=== PATIENT | female | born 1995 | race Two or more races ===

== ENCOUNTER 2023-12-26 14:30 | Emergency (ER) | payer MEDICAID, SELFPAY ==
[2023-12-26 15:08] VITALS: BP 122/83; PULSE 108; RESP 18; TEMP 37.1; O2SAT 100; BMI 32.6
--- NOTE | 2023-12-26 15:20 | EDNOTE_ITS ---
Lower Extremity Injury RME/HPI General Chief Complaint: Extremity Injury, Lower Stated Complaint: LEFT CALF PAIN, SWOLLEN AND TURNING RED X1 MONTH Time Seen by Provider: 12/26/23 15:15 Source: patient Arrival date/time: 12/26/23 14:30 28-year-old female presents emergency department complaining of left calf pain and swelling for several months. Patient denies any fever, chills, nausea vomiting, shortness of breath, chest pain, or any other associated symptom. Patient denies any recent travel or long periods of sitting. Mode of arrival: ambulatory Limitations: no limitations Related Data Home Medications ?Medication ?Instructions ?Recorded ?Confirmed ibuprofen 800 mg tablet 800 mg PO TID PRN Pain 04/28/17 06/30/21 Previous Rx's ?Medication ?Instructions ?Recorded ondansetron 4 mg disintegrating 4 mg PO Q8H PRN nausea and 06/30/21 tablet vomiting #10 tabs promethazine-DM 6.25 mg-15 mg/5 mL 5 ml PO Q6H #240 mL 06/30/21 oral syrup ibuprofen 600 mg tablet 600 mg PO Q8H PRN pain #20 tabs 12/26/23 Allergies Allergy/AdvReac Type Severity Reaction Status Date / Time No Known Drug Allergies Allergy Verified 06/30/21 10:07 Review of Systems Review of Systems Systems Reviewed: All systems reviewed, normal except as documented Constitutional Constitutional: Reports system reviewed and no additional complaints, except as documented, Denies body ache(s), Denies chills and Denies fever(s) Eyes Eyes: Reports system reviewed and no additional complaints, except as documented and Denies change in vision ENT Ears, Nose, Mouth, and Throat: Reports system reviewed and no additional complaints, except as documented, Denies disequilibrium, Denies dizziness, Denies sore throat and Denies vertigo Cardiovascular Cardiovascular: Reports system reviewed and no additional complaints, except as documented, Denies chest pain and Denies dyspnea Respiratory Respiratory: Reports system reviewed and no additional complaints, except as documented, Denies chest congestion, Denies cough and Denies dyspnea Gastrointestinal Gastrointestinal: Reports system reviewed and no additional complaints, except as documented, Denies abdominal pain, Denies nausea and Denies vomiting Musculoskeletal Musculoskeletal: Reports system reviewed and no additional complaints, except as documented, Denies abnormal gait, Denies arthralgias, Reports joint swelling and Reports muscle cramps Integumentary/Breasts Skin/Breast: Reports system reviewed and no additional complaints, except as documented, Denies erythema, Denies rash and Denies wounds Neurologic Neurologic: Reports system reviewed and no additional complaints, except as documented, Denies abnormal gait, Denies disequilibrium, Denies dizziness and Denies vertigo Past Medical History Past Medical History CARDIAC: Negative Cardiac Disorders or Congestive Heart Failure RESPIRATORY: Negative Chronic Obstructive Pulmonary Disease (COPD) or Asthma GASTROINTESTINAL: Positive Gastrointestinal Disorders and Gall Bladder Disease GENITOURINARY: Negative Renal Disease ENDOCRINE: Negative Diabetes Mellitus Type 1 or Diabetes Mellitus Type 2 HEMATOLOGIC: Negative Sickle Cell Disease PSYCHO/SOCIAL: Positive Recreational Drug Use Social History SMOKING STATUS: Current every day smoker ED Exam General Limitations: Present no limitations General appearance: Present alert and in no apparent distress Head Head exam: Present atraumatic Eye Eye exam: Present normal appearance, PERRL and EOMI ENT ENT exam: Present normal exam, normal oropharynx and mucous membranes moist Neck Neck exam: Present normal inspection, full ROM and trachea midline Chest Chest inspection: Present normal inspection and symmetric chest wall rise Respiratory Respiratory exam: Present normal lung sounds bilaterally Cardiovascular Cardiovascular exam: Present regular rate, normal rhythm and normal heart sounds Abdominal Exam Abdominal exam: Present soft and normal bowel sounds Extremities Exam Extremities exam: Present normal inspection and full ROM Expanded Lower Extremity Exam Lower leg exam: Present tenderness (Left calf) and swelling (+1 edema left calf) Back Exam Back exam: Present normal inspection and full ROM Neurological Exam Neurological exam: Present alert, oriented X3 and CN II-XII intact Psychiatric Psychiatric exam: Present normal affect and normal mood Skin Skin exam: Present warm, dry, intact and normal color Course Quality Measures none Orders Category Date Time Status US venous doppler LE LT Stat Exams 12/26/23 16:03 Completed Vital Signs Vital signs: Vital Signs Temperature 98.7 F 12/26/23 15:08 Pulse Rate 108 H 12/26/23 15:08 Respiratory Rate 18 12/26/23 15:08 Blood Pressure 122/83 12/26/23 15:08 Pulse Oximetry (%) 100 12/26/23 15:08 Oxygen Delivery Method Room Air 12/26/23 15:08 100% room air within normal limits Extremity Injury, Lower MDM Narrative MDM Narrative:: 28-year-old female presents emergency department complaining of left calf pain and swelling for several months. Patient denies any fever, chills, nausea vomiting, shortness of breath, chest pain, or any other associated symptom. Patient denies any recent travel or long periods of sitting. Ultrasound was negative for any acute DVT. On exam patient does have varicose veins which may be contributing to her edema and pain. Patient advised to buy [id number] compression stockings and follow-up with primary care provider upon discharge and request referral to vascular surgeon if symptoms persist. Instructed to return to emergency department for any worsening symptoms or as needed Patient data External records reviewed:: [facility] previous records Clinical information provided by:: patient Social determinants that could affect healthcare access:: none Patient has the following chronic illnesses:: Not applicable How is presenting disease/condition affected by chronic disease/condition?: no chronic disease Evaluation data The following diagnostics were reviewed and interpreted by me:: radiology e xam(s) Lab and/or radiology exams considered but not ordered:: Ordered Interpretation Summary: Interpreted by me Medications / Prescriptions Medications or Prescriptions considered but not ordered:: N/A Medication administrations:: N/A Consultations Consultation(s) initiated? (list below): No Diagnosis Extremity Injury, Lower Differential Diagnosis: other (DVT) Most likely diagnosis given after review of the tests above:: Varicose veins with edema Admission Indicated Admission indicated?: not indicated Admission Request Was there a request for admission?: No Disposition Plan Disposition Plan: Discharge Discharge Attestation Discharge Attestation: The patient and all family members were given an opportunity to ask questions and understood the discharge instructions. Discharge instructions specifically effects, indications for sooner follow up or return to the emergency department, and the expected course of current diagnosis. Patient condition: Stable Discharge Plan Plan Patient Disposition: HOME (Self Care) Disposition Comment: Stable Prescriptions/Referrals Prescriptions/Med Rec: New ibuprofen 600 mg tablet 600 mg PO Q8H PRN (Reason: pain) Qty: 20 0RF No Action ibuprofen 800 mg Tablet 800 mg PO TID PRN (Reason: Pain) ondansetron 4 mg tablet,disintegrating 4 mg PO Q8H PRN (Reason: nausea and vomiting) Qty: 10 0RF promethazine-DM 6.25-15 mg/5 mL syrup 5 ml PO Q6H Qty: 240 0RF Referrals: Avinash Esqueda PA-C [Primary Care Provider] - In 1 week Problem List Clinical Impression: Varicose veins of left leg with edema Patient/Caregiver Discharge Instructions Education Materials: ED Varicose Veins Additional Instructions: Take medication as prescribed. Follow-up with primary care provider and request referral to vascular surgeon if symptoms persist. Return to the emergency department for any worsening symptoms or as needed Print Language: Bolivian Stand Alone Forms: [employer] Award Info., Work/School Release, Patient Portal Info Letter MD Attestation MD Attestation The patient was seen by the midlevel practitioner. I, the co-signing physician, was present during the entire ER visit. While I did not physically examine the patient, I was available for consultation as needed.
--- NOTE | 2023-12-26 15:20 | XR_ITS ---
Examination: Duplex scan of the lower extremity, unilateral left complete Date and time of exam: January 05, 2024 1529 hrs. Indications: Left leg swelling and pain beginning 10 minutes ago, worse the last week Technique: Duplex scan of the extremity veins using B-mode/grayscale imaging and Doppler spectral analysis and color flow Attention is directed to internal echogenicity, compression and augmentation involving these veins, color flow assessment, spectral analysis Findings: Major deep venous structures in the extremity demonstrate normal course and caliber. There is no evidence of deep vein thrombosis. Normal color flow and spectral analysis Impression: Negative for DVT..
== END 2023-12-26 16:35 | disposition home or self-care (01) ==
PROVIDERS: Emergency Provider Emergency Medicine; PCP Physician Assistant Medical
DX: I83.892 Varicose veins of left lower extremity with other complications (principal)
CPT/HCPCS: 93971; 99284

== ENCOUNTER 2024-02-06 20:49 | Emergency (ER) | payer MEDICAID, SELFPAY ==
[2024-02-06 20:49] VITALS: BMI 31.9
[2024-02-06 21:54] VITALS: BP 135/89; PULSE 89; RESP 18; TEMP 37.4; O2SAT 99
--- NOTE | 2024-02-06 22:24 | XR_ITS ---
Examination: CT soft tissue neck, with intravenous contrast. 2-D coronal reconstructions. 2-D sagittal reconstructions. Date and time of exam :February 06, 2024 11:54 PM Indications: Sore throat with neck swelling beginning one week ago CTDI: vol (mGy):11 DLP: (mGycm):241 Technique: 1.25 mm axial sections of the neck of the obtained. Coronal and sagittal reconstructions have been obtained. Intravenous contrast administered 50 cc Isovue-370. Low dose protocols were performed. One or more of the following dose reduction techniques were used; automated exposure control, adjustment of the mA and/or KV according to patient size, use of iterative reconstruction technique. Findings: Right tonsillar abscess 13 x 10 mm, partially encroaching upon the oropharynx axial image 16 through 22 Small reactive carotid triangle lymph nodes The larynx appears normal Thyroid lobes are not enlarged Normal epiglottis Impression: 13 x 10 mm right tonsillar abscess partially encroaching upon the oropharyngeal airway
[2024-02-06 22:41] LABS: Lactate (Lactic Acid) 0.6 mMol/L (0.4-2.0)
[2024-02-06 22:47] LABS: Basophils % (Auto) 0 % (0-2.5); Eosinophils # (Auto) 0.2 Thou/mm3 (0.0-0.5); Eosinophils % (Auto) 3 % (0-10); Hemoglobin 13.2 g/dL (12.0-16.0); Immature Granulocytes % (Auto) 0 % (0-0); Immature Granulocytes Auto 0.03 Thou/mm3 (0.00-0.00); Lymphocytes # (Auto) 2.4 Thou/mm3 (1.0-4.8); Lymphocytes % (Auto) 27 % (10-50); Mean Corpuscular HGB Conc 34.7 g/dl (31.0-37.0); Mean Corpuscular Hemoglobin 31.3 pg (25.0-35.0); Mean Corpuscular Volume 90 fL (80-100); Monocytes # (Auto) 0.5 Thou/mm3 (0.0-0.8); Monocytes % (Auto) 6 % (0-12); Neutrophils # (Auto) 5.8 Thou/mm3 (1.8-7.7); Neutrophils % (Auto) 64 % (37-80); Nucleated Red Blood Cell % 0 /100 WBC (0); Platelet Count 287 Thou/mm3 (140-440); RDW Standard Deviation 38.4 fL (36.4-46.3); Red Blood Count 4.22 Miln/mm3 (4.00-5.20)
--- NOTE | 2024-02-06 23:07 | PD.EDDENTL ---
ED Dental RME/HPI General Chief complaint: Dental/Oral/Throat Stated complaint: SORE THROAT Time Seen by Provider: 02/06/24 21:35 Arrival date/time: 02/06/24 20:49 28F with no significant PMH presents to ED with several days of sore throat and swelling. Patient denies cough. Patient has had strep before and states this feels different. Some difficulty swallowing, especially when sleeping. Limitations: no limitations Related Data Home Medications ?Medication ?Instructions ?Recorded ?Confirmed ibuprofen 800 mg tablet 800 mg PO TID PRN Pain 04/28/17 06/30/21 Previous Rx's ?Medication ?Instructions ?Recorded ondansetron 4 mg disintegrating 4 mg PO Q8H PRN nausea and 06/30/21 tablet vomiting #10 tabs promethazine-DM 6.25 mg-15 mg/5 mL 5 ml PO Q6H #240 mL 06/30/21 oral syrup ibuprofen 600 mg tablet 600 mg PO Q8H PRN pain #20 tabs 12/26/23 amoxicillin 875 mg-potassium 1 tab PO BID 14 days #28 tabs 02/07/24 clavulanate 125 mg tablet Allergies Allergy/AdvReac Type Severity Reaction Status Date / Time No Known Drug Allergies Allergy Verified 02/06/24 20:51 Review of Systems Review of Systems Systems Reviewed: All systems reviewed, normal except as documented Constitutional Constitutional: Reports system reviewed and no additional complaints, except as documented, Denies fever(s) and Denies headache(s) ENT Ears, Nose, Mouth, and Throat: Reports as per HPI, Denies disequilibrium, Denies headache(s), Reports sore throat and Reports throat swelling Cardiovascular Cardiovascular: Reports system reviewed and no additional complaints, except as documented, Denies chest pain and Denies dyspnea Respiratory Respiratory: Reports system reviewed and no additional complaints, except as documented, Denies cough and Denies dyspnea Gastrointestinal Gastrointestinal: Reports system reviewed and no additional complaints, except as documented, Denies abdominal pain, Denies nausea and Denies vomiting Neurologic Neurologic: Reports system reviewed and no additional complaints, except as documented, Denies confusion, Denies disequilibrium and Denies headache(s) Psychiatric Psychiatric: Denies confusion Allergic/Immunologic Allergic/Immunologic: Reports throat swelling Past Medical History Past Medical History CARDIAC: Negative Cardiac Disorders or Congestive Heart Failure RESPIRATORY: Negative Chronic Obstructive Pulmonary Disease (COPD) or Asthma GASTROINTESTINAL: Positive Gastrointestinal Disorders and Gall Bladder Disease GENITOURINARY: Negative Renal Disease ENDOCRINE: Negative Diabetes Mellitus Type 1 or Diabetes Mellitus Type 2 HEMATOLOGIC: Negative Sickle Cell Disease PSYCHO/SOCIAL: Positive Recreational Drug Use Social History SMOKING STATUS: Never smoker ED Exam General Limitations: Present no limitations General appearance: Present alert and in no apparent distress Head Head exam: Present atraumatic Eye Eye exam: Present normal appearance, PERRL and EOMI ENT ENT exam: Present mucous membranes moist Expanded ENT Exam Throat exam: Present tonsillar erythema, tonsillomegaly and R peritonsillar mass; Absent muffled voice Neck Neck exam: Present normal inspection, full ROM and trachea midline Chest Chest inspection: Present normal inspection and symmetric chest wall rise Respiratory Respiratory exam: Present normal lung sounds bilaterally Cardiovascular Cardiovascular exam: Present regular rate, normal rhythm and normal heart sounds Abdominal Exam Abdominal exam: Present soft and normal bowel sounds Extremities Exam Extremities exam: Present normal inspection and full ROM Back Exam Back exam: Present normal inspection and full ROM Neurological Exam Neurological exam: Present alert, oriented X3 and CN II-XII intact Psychiatric Psychiatric exam: Present normal affect and normal mood Skin Skin exam: Present warm, dry, intact and normal color Course Quality Measures none Orders Category Date Time Status CT Screening NOW Care 02/06/24 22:24 Active Insert IV NOW Care 02/06/24 22:[address] soft tissue neck w con Stat Exams 02/06/24 22:24 Taken CBC Stat Lab 02/06/24 22:25 Completed CMP [Comprehensive Metabolic Panel] Stat Lab 02/06/24 22:25 Completed Lactate (Lactic Acid) Stat Lab 02/06/24 22:25 Completed Procalcitonin Stat Lab 02/06/24 22:25 Completed Ampicillin/Sulbac Inj [Unasyn Inj] 3 gm Med 02/06/24 22:24 Discontinued Sodium Chloride 0.9% (P) [NS 0.9% mini bag] 100 ml IV X1 Dexamethasone Inj [Decadron Inj] Med 02/06/24 22:24 Discontinued 10 mg IV X1 ONE Ketorolac Inj [Toradol Inj] Med 02/07/24 00:46 Discontinued 30 mg IVP X1 ONE Vital Signs Vital signs: Vital Signs Temperature 99.3 F 02/06/24 21:54 Pulse Rate 89 02/06/24 21:54 Respiratory Rate 18 02/06/24 21:54 Blood Pressure 135/89 H 02/06/24 21:54 Pulse Oximetry (%) 99 02/06/24 21:54 Oxygen Delivery Method Room Air 02/06/24 21:54 O2 at 99% on RA and WNLs Dental / Oral MDM Narrative MDM Narrative:: 28F with no significant PMH presents to ED with several days of sore throat and swelling. Patient denies cough. Patient has had strep before and states this feels different. Some difficulty swallowing, especially when sleeping. Physical exam reveals R tonsillar swelling, but uvula remains midline. No muffled voice. Patient is afebrile, calm, and alert. Patient prefers CT to see size of abscess vs just ABX. No leukocytosis. CMP unremarkable. Procal/lactate normal. CT 1 cm tonsillar abscess. Meds given. Patient data External records reviewed:: [facility] previous records Clinical information provided by:: patient Social determinants that could affect healthcare access:: none Patient has the following chronic illnesses:: none How is presenting disease/condition affected by chronic disease/condition?: no chronic disease Evaluation data The following diagnostics were reviewed and interpreted by me:: lab results and radiology exam(s) Lab and/or radiology exams considered but not ordered:: ordered Interpretation Summary: above Medications / Prescriptions Medications or Prescriptions considered but not ordered:: ordered Medication administrations:: Medication Administration History Discontinued Medications Dexamethasone Sodium Phosphate (Dexamethasone Sod Phos Inj 10 Mg/Ml Vial) 10 mg IV X1 ONE Stop: 02/06/24 22:25 Last Admin: 02/06/24 23:19 Dose: 10 mg Documented By: SENA Ampicillin Sodium/Sulbactam (Sodium 3 gm/ Sodium Chloride) 100 mls @ 200 mls/hr IV X1 ONE Stop: 02/06/24 22:25 Last Infusion: 02/06/24 23:52 Dose: Infused Documented By: Admin: 02/06/24 23:19 Dose: 200 mls/hr Documented By: SENA Ketorolac Tromethamine (Ketorolac Inj 30 Mg/Ml Vial) 30 mg IVP X1 ONE Stop: 02/07/24 00:47 Last Admin: 02/07/24 00:55 Dose: 30 mg Documented By: SENA Comments: PT CALM AND RELAXED TALKING ON PHONE above Consultations Consultation(s) initiated? (list below): No Diagnosis Dental Differential Diagnosis: gingival abscess, dental caries, toothache, dental abscess, fracture of tooth, aphthous ulcer and other (tonsillar abscess) Most likely diagnosis given after review of the tests above:: tonsillar abscess Admission Indicated Admission indicated?: not indicated Admission Request Was there a request for admission?: No Disposition Plan Disposition Plan: Discharge Discharge Attestation Discharge Attestation: The patient and all family members were given an opportunity to ask questions and understood the discharge instructions. Discharge instructions specifically effects, indications for sooner follow up or return to the emergency department, and the expected course of current diagnosis. Patient condition: Stable Discharge Plan Plan Patient Disposition: HOME (Self Care) Disposition Comment: Stable Prescriptions/Referrals Prescriptions/Med Rec: New amoxicillin-pot clavulanate 875-125 mg tablet 1 tab PO BID 14 Days Qty: 28 0RF No Action ibuprofen 800 mg Tablet 800 mg PO TID PRN (Reason: Pain) ondansetron 4 mg tablet,disintegrating 4 mg PO Q8H PRN (Reason: nausea and vomiting) Qty: 10 0RF promethazine-DM 6.25-15 mg/5 mL syrup 5 ml PO Q6H Qty: 240 0RF ibuprofen 600 mg tablet 600 mg PO Q8H PRN (Reason: pain) Qty: 20 0RF Referrals: Darron Zacarias MD [Primary Care Provider] - In 1 week Problem List Clinical Impression: Abscess of tonsil Patient/Caregiver Discharge Instructions Education Materials: ED Peritonsillar Abscess Additional Instructions: Please follow-up with PCP within 24-48 hours and return immediately if symptoms worsen. Ibuprofen/Tylenol can be used simultaneously for greater fever/pain control. Print Language: Slovak Stand Alone Forms: Patient Portal Info Letter JAYASHREE/JUAN LUIS Supervising Physician HOLGER Supervising Physician: Dr. Medrano
[2024-02-06 23:11] LABS: Alanine Aminotransferase 41 U/L (10-49); Albumin, Serum 4.5 gm/dL (3.5-5.0); Albumin/Globulin Ratio 1.6 (1.2-2.2); Alkaline Phosphatase 79 U/L (46-116); Anion Gap 10 (7-16); Aspartate Amino Transferase 30 U/L (0-34); BUN/Creatinine Ratio 15 Ratio (12-20); Bilirubin,Total 0.4 mg/dL (0.3-1.2); Blood Urea Nitrogen 9 mg/dL (9-23); Calcium 9.6 mg/dL (8.3-10.6); Calcium (Corrected) 9.6 mg/dL (8.5-10.1); Carbon Dioxide 22.5 mMol/L (20.0-31.0); Chloride 107 mMol/L (98-107); Creatinine (Component) 0.6 mg/dL (0.6-1.3); Estimated Creatinine Clearance 156.2 mL/min (>60); Globulin 2.9 gm/dL (2.3-3.5); Glucose 93 mg/dL (74-106); Osmolality,Calculated 276 (275-295); Potassium 3.8 mMol/L (3.4-5.1); Procalcitonin 0.07 ng/ml (0.0-0.49); Sodium 139 mMol/L (136-145); Total Protein 7.4 gm/dL (5.7-8.2); eGFR > 60 See Note
[2024-02-06] MEDS: DEXAMETHASONE SOD PHOS INJ 10 MG/ML VIAL IV (23:19)
[2024-02-06] MEDS: AMPICILLIN/SULBAC INJ 3 GM in SODIUM CHLORIDE 0.9% (P) 100 ML IV (23:19)
[2024-02-07 00:24] VITALS: BP 119/76; PULSE 90; RESP 19; TEMP 36.9; O2SAT 98
--- NOTE | 2024-02-07 00:44 | PRELIM_ITS ---
CT scan of the neck with intravenous contrast (axial sections with sagittal and coronal reformats) [place] 2023 at 2354 hours Clinical History: Right tonsillar swelling. Comparison: None.Findings:I mage quality is limited by beam hardening artifacts from dental amalgam.Questionable right palatine t onsil abscess measuring 1.2 x 1.1 cm.The nasopharynx, hypopharynx, supraglottic and infraglottic funmi nx, vocal cords and upper trachea are unremarkable. The epiglottis and aryepiglottic folds appear unr emarkable. No enhancing lesion or fluid collection is identified. The vessels of the neck are well op acified. No filling defect is seen. The superficial soft tissues of the neck are unremarkable. Close of the physiologic cervical lordosis.Impression:Image quality is limited by beam hardening artifacts from dental amalgam.Questionable right palatine tonsil abscess, consider correlation with MRI.Discuss ion Details: Results verbally communicated to : JAYASHREE Katz at 12:38 AM 02/07/2024 Report Electronica lly Signed By: Teddy Weinstein 02/07/2024 12:43:30 AM [EST]
[2024-02-07] MEDS: KETOROLAC INJ 30 MG/ML VIAL IVP (00:55)
== END 2024-02-07 01:08 | disposition home or self-care (01) ==
PROVIDERS: Physician Assistant; Emergency Provider Emergency Medicine; PCP Family Medicine
DX: J36 Peritonsillar abscess (principal)
CPT/HCPCS: 36415; 70491; 80053; 83605; 84145; 85025; 87651; 96365; 96375; 99285; A4649; J0295; J1100; J1885; Q9967

== ENCOUNTER 2024-11-27 16:35 | Emergency (ER) | payer MEDICAID, SELFPAY ==
[2024-11-27 16:36] VITALS: BMI 30.7
[2024-11-27 17:23] VITALS: BP 126/74; PULSE 87; RESP 16; TEMP 37; O2SAT 100
--- NOTE | 2024-11-27 19:01 | XR_ITS ---
Examination: Complete OB ultrasound, less than 14 weeks, transabdominal Date and time of exam: November 27, 2024, 1936 hours INDICATIONS: Vaginal bleeding beginning this morning Technique: Obstetrical ultrasound images less than 14 weeks performed via transabdominal imaging Findings: A normal shaped single intrauterine gestation is present in the uterus. pole 0.5 cm corresponds to 6 weeks 1 day gestational age Cardiac motion 147 bpm Ultrasonographic survey of visible and placental structures unremarkable. Amniotic fluid volume appears appropriate for this estimated gestational age. Right ovary obscured by bowel gas Left ovary 3.1 cm arterial flow IMPRESSION: Viable intrauterine gestation 6 weeks 1 day.
[2024-11-27 19:21] LABS: Basophils # (Auto) 0.0 Thou/mm3 (0.0-0.2); Basophils % (Auto) 0 % (0-2.5); Eosinophils # (Auto) 0.1 Thou/mm3 (0.0-0.5); Eosinophils % (Auto) 2 % (0-10); Hematocrit 38.3 % (36.0-46.0); Hemoglobin 13.1 g/dL (12.0-16.0); Immature Granulocytes Auto 0.01 Thou/mm3 (0.00-0.00); Lymphocytes # (Auto) 2.6 Thou/mm3 (1.0-4.8); Lymphocytes % (Auto) 37 % (10-50); Mean Corpuscular HGB Conc 34.2 g/dl (31.0-37.0); Mean Corpuscular Hemoglobin 31.0 pg (25.0-35.0); Mean Corpuscular Volume 91 fL (80-100); Monocytes # (Auto) 0.4 Thou/mm3 (0.0-0.8); Monocytes % (Auto) 6 % (0-12); Neutrophils # (Auto) 3.9 Thou/mm3 (1.8-7.7); Neutrophils % (Auto) 55 % (37-80); Nucleated Red Blood Cell # 0.00 Thou/mm3 (0.00-0.00); Nucleated Red Blood Cell % 0 /100 WBC (0); Platelet Count 300 Thou/mm3 (140-440); RDW Standard Deviation 37.6 fL (36.4-46.3); Red Blood Count 4.23 Miln/mm3 (4.00-5.20); White Blood Count 7.1 Thou/mm3 (3.6-11.0)
[2024-11-27 19:44] LABS: Alanine Aminotransferase 50 U/L (10-49); Albumin, Serum 4.7 gm/dL (3.5-5.0); Albumin/Globulin Ratio 1.9 (1.2-2.2); Alkaline Phosphatase 66 U/L (46-116); Anion Gap 10 (7-16); Aspartate Amino Transferase 35 U/L (0-34); BUN/Creatinine Ratio 9 Ratio (12-20); Bilirubin,Total 0.3 mg/dL (0.3-1.2); Blood Urea Nitrogen 7 mg/dL (9-23); Calcium 10.1 mg/dL (8.3-10.6); Calcium (Corrected) 10.1 mg/dL (8.5-10.1); Carbon Dioxide 23.6 mMol/L (20.0-31.0); Chloride 105 mMol/L (98-107); Creatinine (Component) 0.8 mg/dL (0.6-1.3); Estimated Creatinine Clearance 113.7 mL/min (>60); Globulin 2.5 gm/dL (2.3-3.5); Glucose 106 mg/dL (74-106); Osmolality,Calculated 275 (275-295); Potassium 4.3 mMol/L (3.4-5.1); Sodium 139 mMol/L (136-145); Total Protein 7.2 gm/dL (5.7-8.2); eGFR > 60 See Note
[2024-11-27 20:20] LABS: Collection Type, Urine Voided
[2024-11-27 20:28] LABS: Beta HCG,Quantitative 17088 mIU/mL (<5.0)
[2024-11-27 20:29] LABS: Bilirubin,Urine Negative (Negative); Blood,Urine 2+ (Negative); Clarity,Urine Clear (Clear/Hazy); Color,Urine Colorless (Lt Yel-Yel); Glucose, Urine Negative (Negative); Ketones,Urine Negative (Negative); Leukocyte Esterase,Urine Negative (Negative); Nitrite,Urine Negative (Negative); PH,Urine 6.5 (5.0-7.0); Protein,Urine Negative (Neg - Trace); RBC,Urine 3 /hpf (0-3); Specific Gravity,Urine 1.007 (1.001-1.035); Squamous Epithelial Cell,Urine 1 /hpf (0-5); Urobilinogen,Urine Negative mg/dL (0.0-1.0); WBC,Urine < 1 /hpf (0-5)
--- NOTE | 2024-11-27 20:40 | PD.EDVAGBL ---
ED OB Contraction Preg RMI/HPI General Chief complaint: Vaginal Bleeding Stated complaint: VAGINAL BLEEDING; 6 WEEKS OB Time Seen by Provider: 11/27/24 18:38 Arrival date/time: This is a case of 29-year-old female who came into the emergency room due to mild vaginal bleeding no blood clots and pelvic cramping today patient is 6 weeks 1 para 0 patient was seen by clinic yesterday and was treated for urinary tract infection and was discharged with cephalexin persistence of the symptoms this patient decided to start consult here in the emergency room Limitations: no limitations Related Data Home Medications ?Medication ?Instructions ?Recorded ?Confirmed ibuprofen 800 mg tablet 800 mg PO TID PRN Pain 04/28/17 06/30/21 Previous Rx's ?Medication ?Instructions ?Recorded ondansetron 4 mg disintegrating 4 mg PO Q8H PRN nausea and 06/30/21 tablet vomiting #10 tabs promethazine-DM 6.25 mg-15 mg/5 mL 5 ml PO Q6H #240 mL 06/30/21 oral syrup ibuprofen 600 mg tablet 600 mg PO Q8H PRN pain #20 tabs 12/26/23 Allergies Allergy/AdvReac Type Severity Reaction Status Date / Time No Known Drug Allergies Allergy Verified 11/27/24 16:40 Review of Systems Review of Systems Systems Reviewed: All systems reviewed, normal except as documented Constitutional Constitutional: Reports system reviewed and no additional complaints, except as documented and Reports as per HPI Cardiovascular Cardiovascular: Reports system reviewed and no additional complaints, except as documented and Reports as per HPI Respiratory Respiratory: Reports system reviewed and no additional complaints, except as documented and Reports as per HPI Gastrointestinal Gastrointestinal: Reports system reviewed and no additional complaints, except as documented and Reports as per HPI Genitourinary Genitourinary: Reports system reviewed and no additional complaints, except as documented and Reports as per HPI Neurologic Neurologic: Reports system reviewed and no additional complaints, except as documented and Reports as per HPI Past Medical History Past Medical History CARDIAC: Negative Cardiac Disorders or Congestive Heart Failure RESPIRATORY: Negative Chronic Obstructive Pulmonary Disease (COPD) or Asthma GASTROINTESTINAL: Positive Gastrointestinal Disorders and Gall Bladder Disease GENITOURINARY: Negative Renal Disease ENDOCRINE: Negative Diabetes Mellitus Type 1 or Diabetes Mellitus Type 2 HEMATOLOGIC: Negative Sickle Cell Disease PSYCHO/SOCIAL: Positive Recreational Drug Use Social History SMOKING STATUS: Never smoker ED Exam General Limitations: Present no limitations General appearance: Present alert, in no apparent distress and other (Patient is awake alert oriented not in distress nontoxic looking well-hydrated well-nourished) Head Head exam: Present atraumatic, normocephalic and normal inspection Eye Eye exam: Present normal appearance, PERRL and EOMI ENT ENT exam: Present normal exam, normal oropharynx and mucous membranes moist Neck Neck exam: Present normal inspection, full ROM and trachea midline Chest Chest inspection: Present normal inspection and symmetric chest wall rise Respiratory Respiratory exam: Present normal lung sounds bilaterally; Absent respiratory distress, wheezes, stridor, accessory muscle use or prolonged expiratory phase Cardiovascular Cardiovascular exam: Present regular rate, normal rhythm and normal heart sounds; Absent bradycardia, tachycardia, irregular rhythm, systolic murmur or diastolic murmur Abdominal Exam Abdominal exam: Present soft, normal bowel sounds and other (No CVA tenderness bladder is not distended not tender); Absent distention, tenderness, guarding, rebound, rigidity, diminished bowel sounds, hyperactive bowel sounds, hypoactive bowel sounds or organomegaly Extremities Exam Extremities exam: Present normal inspection and full ROM Back Exam Back exam: Present normal inspection and full ROM Neurological Exam Neurological exam: Present alert, oriented X3, CN II-XII intact, normal gait and reflexes normal; Absent motor sensory deficit Psychiatric Psychiatric exam: Present normal affect and normal mood Skin Skin exam: Present warm, dry, intact and normal color Course Quality Measures none Orders Category Date Time Status US OB <= 14 weeks fetus Stat Exams 11/27/24 19:01 Completed ABO/RH Type Stat Lab 11/27/24 19:10 Completed Beta HCG,Quantitative Stat Lab 11/27/24 19:10 Completed CBC Stat Lab 11/27/24 19:10 Completed CMP [Comprehensive Metabolic Panel] Stat Lab 11/27/24 19:10 Completed Urinalysis Stat Lab 11/27/24 20:08 Completed Vital Signs Vital signs: Vital Signs Temperature 98.6 F 11/27/24 17:23 Pulse Rate 87 11/27/24 17:23 Respiratory Rate 16 11/27/24 17:23 Blood Pressure 126/74 11/27/24 17:23 Pulse Oximetry (%) 100 11/27/24 17:23 Oxygen Delivery Method Room Air 11/27/24 17:23 Oxygen saturation is 100% in room air normal Vaginal Bleeding MDM Narrative MDM Narrative: This is a case of 29-year-old female who came into the emergency room due to mild vaginal bleeding no blood clots and pelvic cramping today patient is 6 weeks 1 para 0 patient was seen by clinic yesterday and was treated for urinary tract infection and was discharged with cephalexin persistence of the symptoms this patient decided to start consult here in the emergency room physical examination patient is awake alert oriented not in distress nontoxic looking excellent skin turgor abdominal exam is benign nonsurgical no guarding no rebound no rigidity bladder is not distended nor tender the rest of the physical examination and neurological exam is normal and unremarkable patient blood test showed no leukocytosis no anemia kidney and liver function is normal no electrolyte imbalance patient beta-hCG [id number] patient urinalysis is normal patient ultrasound is 6 weeks intrauterine based on my physical examination and history patient symptoms suggestive of threatened in early patient will continue cephalexin for urinary tract infection patient will see the OB as scheduled and for checkup and reevaluation of the threatened in early she will also see PCP in 2 days for any worsening symptoms or any emergent concern return precaution in the emergency room was advised keep hydrated continue multivitamins and pelvic rest Patient was discharged with comfortable condition walking with stable gait. Patient verbalized no further complains explained diagnosis and answered patient question. Patient is comfortable with the proposed management plan including the need to follow up with his/her primary care physician and any specialist if applicable Discussed patient for any urgent condition or worsening sx, He/She needed to go to emergency room immediately or call 911. Patient acknowledge the responsibility to follow up as instructed and to monitor her/his symptoms. For any persistence of the symptoms for more than 3-5 days return precaution advised. Discussed the result of the test and was given printed discharge instruction Patient data External records reviewed:: [facility] previous records Clinical information provided by:: patient Social determinants that could affect healthcare access:: none Patient has the following chronic illnesses:: None How is presenting disease/condition affected by chronic disease/condition?: no chronic disease Evaluation data The following diagnostics were reviewed and interpreted by me:: lab results and radiology exam(s) Lab and/or radiology exams considered but not ordered:: Reviewed Interpretation Summary: Reviewed Medications / Prescriptions Medications or Prescriptions considered but not ordered:: Given Medication administrations:: Given Consultations Consultation(s) initiated? (list below): No Diagnosis Vaginal Bleeding Differential Diagnosis: missed , threatened and incomplete Most likely diagnosis given after review of the tests above:: Threatened in early Admission Indicated Admission indicated?: not indicated Explain why admission is indicated or not indicated:: Not indicated Admission Request Was there a request for admission?: No Admission Attestation Admission request attestation: Not indicated Disposition Plan Disposition Plan: Discharge Discharge Attestation Discharge Attestation: The patient and all family members were given an opportunity to ask questions and understood the discharge instructions. Discharge instructions specifically effects, indications for sooner follow up or return to the emergency department, and the expected course of current diagnosis. Patient condition: Stable Discharge Plan Plan Patient Disposition: HOME (Self Care) Patient condition on transfer: Stable Prescriptions/Referrals Prescriptions/Med Rec: No Action ibuprofen 800 mg Tablet 800 mg PO TID PRN (Reason: Pain) ondansetron 4 mg tablet,disintegrating 4 mg PO Q8H PRN (Reason: nausea and vomiting) Qty: 10 0RF promethazine-DM 6.25-15 mg/5 mL syrup 5 ml PO Q6H Qty: 240 0RF ibuprofen 600 mg tablet 600 mg PO Q8H PRN (Reason: pain) Qty: 20 0RF Referrals: No Primary/Family,Physician [Primary Care Provider] - In 1 week Problem List Clinical Impression: Threatened , Urinary tract infection Patient/Caregiver Discharge Instructions Education Materials: Urinary Tract Infections in Women, ED Possible Miscarriage ... 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 Román Ortega
== END 2024-11-27 20:52 | disposition home or self-care (01) ==
PROVIDERS: Nurse Practitioner Family; Emergency Provider Emergency Medicine
DX: O20.0 Threatened abortion (principal); Z3A.01 Less than 8 weeks gestation of pregnancy; O23.41 Unspecified infection of urinary tract in pregnancy, first trimester; N39.0 Urinary tract infection, site not specified
CPT/HCPCS: 36415; 76801; 80053; 81001; 84702; 85025; 86900; 86901; 99283

== ENCOUNTER 2024-12-09 21:58 | Emergency (ER) | payer MEDICAID, SELFPAY ==
[2024-12-09 21:59] VITALS: BMI 30.7
[2024-12-09 22:24] VITALS: BP 124/82; PULSE 85; RESP 18; TEMP 36.7; O2SAT 100
--- NOTE | 2024-12-09 22:42 | PD.EDVAGBL ---
ED OB Contraction Preg RMI/HPI General Chief complaint: Vaginal Bleeding Stated complaint: 7 WKS PREG VAG BLEED Time Seen by Provider: 12/09/24 22:34 Arrival date/time: 12/09/24 21:58 29F at approximately 7-8 weeks and with no significant PMH presents to ED with 1 day of pelvic pain and vaginal spotting. Patient recently here for this. Blood type O+. Limitations: no limitations Related Data Home Medications ?Medication ?Instructions ?Recorded ?Confirmed ibuprofen 800 mg tablet 800 mg PO TID PRN Pain 04/28/17 06/30/21 Previous Rx's ?Medication ?Instructions ?Recorded ondansetron 4 mg disintegrating 4 mg PO Q8H PRN nausea and 06/30/21 tablet vomiting #10 tabs promethazine-DM 6.25 mg-15 mg/5 mL 5 ml PO Q6H #240 mL 06/30/21 oral syrup ibuprofen 600 mg tablet 600 mg PO Q8H PRN pain #20 tabs 12/26/23 Allergies Allergy/AdvReac Type Severity Reaction Status Date / Time No Known Drug Allergies Allergy Verified 12/09/24 22:03 Review of Systems Review of Systems Systems Reviewed: All systems reviewed, normal except as documented Genitourinary Genitourinary: Reports as per HPI, Reports abnormal vaginal bleeding and Reports pelvic pain Past Medical History Past Medical History CARDIAC: Negative Cardiac Disorders or Congestive Heart Failure RESPIRATORY: Negative Chronic Obstructive Pulmonary Disease (COPD) or Asthma GASTROINTESTINAL: Positive Gastrointestinal Disorders and Gall Bladder Disease GENITOURINARY: Negative Renal Disease ENDOCRINE: Negative Diabetes Mellitus Type 1 or Diabetes Mellitus Type 2 HEMATOLOGIC: Negative Sickle Cell Disease PSYCHO/SOCIAL: Positive Recreational Drug Use Social History SMOKING STATUS: Never smoker ED Exam General Limitations: Present no limitations General appearance: Present alert and in no apparent distress Head Head exam: Present atraumatic Neck Neck exam: Present normal inspection, full ROM and trachea midline Chest Chest inspection: Present normal inspection and symmetric chest wall rise Neurological Exam Neurological exam: Present alert and oriented X3 Psychiatric Psychiatric exam: Present normal affect and normal mood Skin Skin exam: Present warm, dry, intact and normal color Course Quality Measures none Orders Category Date Time Status US OB <= 14 weeks fetus Stat Exams 12/09/24 23:06 Completed Beta HCG,Quantitative Stat Lab 12/09/24 23:25 Completed CBC Stat Lab 12/09/24 23:25 Completed CMP [Comprehensive Metabolic Panel] Stat Lab 12/09/24 23:25 Completed Urinalysis, C/S if Indicated Stat Lab 12/10/24 00:36 Completed Vital Signs Vital signs: Vital Signs Temperature 98.1 F 12/09/24 22:24 Pulse Rate 85 12/09/24 22:24 Respiratory Rate 18 12/09/24 22:24 Blood Pressure 124/82 12/09/24 22:24 Pulse Oximetry (%) 100 12/09/24 22:24 Oxygen Delivery Method Room Air 12/09/24 22:24 O2 at 100% on RA and WNLs Vaginal Bleeding MDM Narrative MDM Narrative: 29F at approximately 7-8 weeks and with no significant PMH presents to ED with 1 day of pelvic pain and vaginal spotting. Patient recently here for this. Blood type O+. Physical exam reveals well-appearing female. Patient is afebrile, calm, and alert. US reveals empty gestation sac with no cardiac activity, which suggests likely miscarriage, especially when last US here had cardiac activity. In addition, Beta HCG from 10 days ago only increased about 2 folds, which is too low. No leukocytosis or anemia. Youth Care Professional given. Patient data External records reviewed:: [facility] previous records Clinical information provided by:: patient Social determinants that could affect healthcare access:: none Patient has the following chronic illnesses:: none How is presenting disease/condition affected by chronic disease/condition?: no chronic disease Evaluation data The following diagnostics were reviewed and interpreted by me:: lab results and radiology exam(s) Lab and/or radiology exams considered but not ordered:: ordered Interpretation Summary: above Medications / Prescriptions Medications or Prescriptions considered but not ordered:: not ordered Medication administrations:: n/a Consultations Consultation(s) initiated? (list below): No Diagnosis Vaginal Bleeding Differential Diagnosis: missed , threatened , dysfunctional uterine bleeding, menometrorrhagia, incomplete , ectopic without intrauterine and vaginal bleeding Most likely diagnosis given after review of the tests above:: incomplete miscarriage Admission Indicated Admission indicated?: not indicated Admission Request Was there a request for admission?: No Disposition Plan Disposition Plan: Discharge Discharge Attestation Discharge Attestation: The patient and all family members were given an opportunity to ask questions and understood the discharge instructions. Discharge instructions specifically effects, indications for sooner follow up or return to the emergency department, and the expected course of current diagnosis. Patient condition: Stable Discharge Plan Plan Patient Disposition: HOME (Self Care) Discharge Disposition comment: Stable Prescriptions/Referrals Prescriptions/Med Rec: No Action ibuprofen 800 mg Tablet 800 mg PO TID PRN (Reason: Pain) ondansetron 4 mg tablet,disintegrating 4 mg PO Q8H PRN (Reason: nausea and vomiting) Qty: 10 0RF promethazine-DM 6.25-15 mg/5 mL syrup 5 ml PO Q6H Qty: 240 0RF ibuprofen 600 mg tablet 600 mg PO Q8H PRN (Reason: pain) Qty: 20 0RF Referrals: No Primary/Family,Physician [Primary Care Provider] - In 1 week Problem List Clinical Impression: Incomplete miscarriage Patient/Caregiver Discharge Instructions Education Materials: ED Miscarriage, Incomplete Additional Instructions: Please follow-up with PCP/OBGYN within 24-48 hours and return immediately if symptoms worsen. Print Language: Portuguese Stand Alone Forms: Patient Portal Info Letter JAYASHREE/JUAN LUIS Supervising Physician JAYASHREE/JUAN LUIS Supervising Physician: Dr. Starr
--- NOTE | 2024-12-09 23:06 | XR_ITS ---
Examination: Complete OB ultrasound, less than 14 weeks, transabdominal Date and time of exam: December 09, 2024, 11:00 p.m. INDICATIONS: Heavy vaginal bleeding beginning today Technique: Obstetrical ultrasound images less than 14 weeks performed via transabdominal imaging Findings: Uterus 9.3 cm, intrauterine gestational sac 1.8 cm corresponds to 6 weeks 5 days gestational age No pole, no cardiac activity Uterine fundal mass 27 mm consistent with fibroid degeneration Right ovary 2.5 cm arterial flow Left ovary 4.2 cm arterial flow 22 mm cyst IMPRESSION: Empty intrauterine gestational sac corresponding to 6 weeks 5 days gestational age Recommend short-term follow-up pelvic sonography to exclude embryonic demise
[2024-12-10] LABS: Basophils # (Auto) 0.0 Thou/mm3 (0.0-0.2); Basophils % (Auto) 0 % (0-2.5); Eosinophils # (Auto) 0.2 Thou/mm3 (0.0-0.5); Eosinophils % (Auto) 3 % (0-10); Hematocrit 39.7 % (36.0-46.0); Hemoglobin 13.2 g/dL (12.0-16.0); Immature Granulocytes Auto 0.02 Thou/mm3 (0.00-0.00); Lymphocytes # (Auto) 2.9 Thou/mm3 (1.0-4.8); Lymphocytes % (Auto) 40 % (10-50); Mean Corpuscular HGB Conc 33.2 g/dl (31.0-37.0); Mean Corpuscular Hemoglobin 31.1 pg (25.0-35.0); Mean Corpuscular Volume 94 fL (80-100); Monocytes # (Auto) 0.5 Thou/mm3 (0.0-0.8); Monocytes % (Auto) 7 % (0-12); Neutrophils # (Auto) 3.6 Thou/mm3 (1.8-7.7); Neutrophils % (Auto) 50 % (37-80); Nucleated Red Blood Cell # 0.00 Thou/mm3 (0.00-0.00); Nucleated Red Blood Cell % 0 /100 WBC (0); Platelet Count 307 Thou/mm3 (140-440); RDW Standard Deviation 38.6 fL (36.4-46.3); Red Blood Count 4.24 Miln/mm3 (4.00-5.20); White Blood Count 7.3 Thou/mm3 (3.6-11.0)
[2024-12-10 00:32] LABS: Alanine Aminotransferase 31 U/L (10-49); Albumin, Serum 4.6 gm/dL (3.5-5.0); Albumin/Globulin Ratio 1.8 (1.2-2.2); Alkaline Phosphatase 64 U/L (46-116); Anion Gap 9 (7-16); Aspartate Amino Transferase 23 U/L (0-34); BUN/Creatinine Ratio 13 Ratio (12-20); Bilirubin,Total 0.4 mg/dL (0.3-1.2); Blood Urea Nitrogen 9 mg/dL (9-23); Calcium 9.9 mg/dL (8.3-10.6); Calcium (Corrected) 9.9 mg/dL (8.5-10.1); Carbon Dioxide 24.0 mMol/L (20.0-31.0); Chloride 104 mMol/L (98-107); Creatinine (Component) 0.7 mg/dL (0.6-1.3); Estimated Creatinine Clearance 130.0 mL/min (>60); Globulin 2.5 gm/dL (2.3-3.5); Glucose 104 mg/dL (74-106); Osmolality,Calculated 272 (275-295); Potassium 4.0 mMol/L (3.4-5.1); Sodium 137 mMol/L (136-145); Total Protein 7.1 gm/dL (5.7-8.2); eGFR > 60 See Note
[2024-12-10 00:45] LABS: Collection Type, Urine Clean Catch
[2024-12-10 00:50] LABS: Bilirubin,Urine Negative (Negative); Blood,Urine 3+ (Negative); Clarity,Urine Clear (Clear/Hazy); Color,Urine Colorless (Lt Yel-Yel); Culture Indicated,Urine Not Indicated; Glucose, Urine Negative (Negative); Ketones,Urine Negative (Negative); Leukocyte Esterase,Urine Negative (Negative); Nitrite,Urine Negative (Negative); PH,Urine 7.0 (5.0-7.0); Protein,Urine Negative (Neg - Trace); RBC,Urine 22 /hpf (0-3); Specific Gravity,Urine 1.007 (1.001-1.035); Squamous Epithelial Cell,Urine 2 /hpf (0-5); Urobilinogen,Urine Negative mg/dL (0.0-1.0); WBC,Urine 1 /hpf (0-5)
[2024-12-10 00:53] LABS: Beta HCG,Quantitative 28284 mIU/mL (<5.0)
== END 2024-12-10 01:25 | disposition home or self-care (01) ==
PROVIDERS: Physician Assistant; Emergency Provider Emergency Medicine
DX: O03.4 Incomplete spontaneous abortion without complication (principal); Z3A.08 8 weeks gestation of pregnancy
CPT/HCPCS: 36415; 76801; 80053; 81001; 84702; 85025; 99282

== ENCOUNTER 2024-12-13 14:15 | Outpatient (AMB) | payer MEDICAID, SELFPAY ==
[2024-12-13 14:35] VITALS: BP 123/79; PULSE 116; RESP 18; TEMP 36.2; O2SAT 98; BMI 32.3
--- NOTE | 2024-12-13 14:35 | GYNCLNT_ITS ---
Vital Signs 12/13/24 14:35 Height 1.68 m Height Method Stated Weight 91.229 kg Weight Measurement Method Standing Scale BMI 32.3 BP 123/79 Blood Pressure Source Automatic Cuff Blood Pressure Location Left Upper Arm Position Sitting Respiration 18 Pulse 116 H Pulse Source Monitor Temp 97.2 F Temp Source Oral Pulse Oximetry (%) 98 Oxygen Delivery Method Room Air Allergies/Home Meds Allergies & Medications Allergies No Known Drug Allergies Allergy (Verified 12/13/24 14:37) Medication Reconciliation ibuprofen 800 mg tablet 800 mg PO TID PRN Pain 04/28/17 [History Confirmed 12/13/24] ondansetron 4 mg disintegrating tablet 4 mg PO Q8H PRN nausea and vomiting #10 tabs 06/30/21 [Rx Confirmed 12/13/24] promethazine-DM 6.25 mg-15 mg/5 mL oral syrup 5 ml PO Q6H #240 mL 06/30/21 [Rx Confirmed 12/13/24] ibuprofen 600 mg tablet 600 mg PO Q8H PRN pain #20 tabs 12/26/23 [Rx Confirmed 12/13/24] Intake Visit Data Collection New Patient or Established: Established Patient (seen at [facility] within 3 years) Reason for Visit:: C Seen by Clinical Staff ONLY (RN/MA): No Aircraft Line Assembler Required: No Do You Feel Safe at Home: Yes Authorities Contacted: N/A PCP or OBGYN visit in last 3 months: Yes Date of Last PCP or OBGYN visit: 12/09/24 Hx Now: No Are you currently on any form of Control: No Pain Present Currently: No Pain Scale Used: Bond-Waddell/Numerical Pain scale:: 0 Smoking Status Smoking Status: Never smoker Immunizations Flu Vaccine in the Last 12 Months: No Flu Vaccine Exclusion Criteria: No Exclusion Criteria Log Rafter history Log Rafter History Menstrual regularity: regular Flow: normal Monthly: Yes Menopausal: No Currently sexually active: Yes CLIENT SERVICES SPECIALIST: Past Medical History Past Medical History: No Hx Cardiac Disorders, Yes Hx Gastrointestinal Disorders, No Hx Renal Disease, No Hx Diabetes Mellitus Type 1 and No Hx Diabetes Mellitus Type 2 Questionnaires Covid-19 Vaccine Questionnaire Has patient been vacinated for Covid-19 Have you been vacinated for Covid-19: No PHQ-9 PHQ-2 Over the last 2 weeks, how often have you been bothered by any of the following problems? 1. Little interest or pleasure in doing things: not at all 2. Feeling down, depressed, or hopeless: not at all Total score: 0 PHQ-9 3. Trouble falling or staying asleep, or sleeping too much: Not at all 4. Feeling tired or having little energy: Not at all 5. Poor appetite or overeating: Not at all 6. Feeling bad about yourself - or that you are a failure or have let yourself or your family down: Not at all 7. Trouble concentrating on things, such as reading the newspaper or watching television: Not at all 8. Moving or speaking so slowly that other people could have noticed? - Or the opposite - being so fidgety or restless that you have been moving around a lot more than usual: not at all 9. Thoughts that you would be better off or of hurting yourself in some way: Not at all Total score: 0 If you checked off any problems, how difficult have these problems made it for you to do your work, take care of things at home, or get along with other people?: not difficult at all Source: Developed by Drs. Shahid Vang, Camila Sharma, Eliud Arguelles and colleagues, with an educational shira from [employer]. Social History Tobacco History Smoking Status: Never smoker Alcohol History Alcohol Intake: Current Alcohol Intake Frequency: A Few Times a Week Substance Use History Substance Use: 2-3 loints daily Domestic Abuse History Do You Feel Safe at Home: Yes History of Present Illness HPI Narrative This is a 29-year-old 1 para 0 with complaints of vaginal bleeding since 27 November. Patient last. October 14, 2024. The patient was seen at [facility] EGD for vaginal bleeding on November 27. She had a ultrasound that showed a 6-week 1 day ultrasound heart tones were seen at that time. Her hCG at that time was 170,088. Denies social habits. Denies surgery. Denies chronic illness. Patient then was seen in the ER December 09. And on that ultrasound she was 6 weeks 5 days. No pole was seen no cardiac to be seen and beta-hCG at that time was 282,084. Bleeding is less today patient had some cramps Review of Systems Review of Systems Systems Reviewed: All systems reviewed, normal except as documented Exam Narrative Physical exam: Abdomen soft and nontender. Small amount of dried blood on the pad. The vagina was pink. Nulip parous cervix. There is a small blood clot in the cervix. No signs or symptoms of infection or inflammation the uterus was about 6 weeks size General Limitations: no limitations General Appearance: alert, in no apparent distress, comfortable, cooperative, healthy appearing, well developed and well groomed Head Head exam: atraumatic, normocephalic and normal inspection Neck Neck exam: Present normal inspection, full ROM and trachea midline Chest Chest inspection: Present normal inspection and symmetric chest wall rise Resp Respiratory exam: Present normal lung sounds bilaterally Card Cardiovascular exam: Present regular rate, normal rhythm and normal heart sounds Abdominal Abdominal exam: Present soft and normal bowel sounds Results Objective Laboratory: 11/27 HCG; 79991, 12/09: 82766. Imaging: TRANS VAG SONO: 6W5 SAC, NO POLE, NO FHT Office Procedures [facility] Clinic LOC & Office Proc's Nursing/Assessment Patient Status: Established Patient OB Clinic Nursing Assessment: Medication Reconciliation, Update PMH in EMR and Vital Signs OB Clinic Coordination of Care: Consent,records obtained, informed consent, Education Simp Pt/Fam, Lab and Imaging orders, Results/Orders obtained and Staff clarify orders Special Needs: Heart tones Established Patient Charge Established Patient Point Assignment: 110 Established Patient Point Charge: EP Level 3 (80-115) Assessment & Plan Diagnosis / Problem List (1) Incomplete miscarriage: Status: Acute Plan Stat transvaginal ultrasound for incomplete SAB. Discussed SAB precautions. I discussed parameters with patient for the ER. Beta-hCG x 2. Continue prenatals. And I discussed danger signs symptoms. Patient will return with OB is soon as she has had her sono and labs. Additional Plan Follow Up: 1 Week (F/U SAB)
== END 2024-12-13 15:27 | disposition home or self-care (01) ==
LOC: HODSOBC 14:15
PROVIDERS: Supervising Provider Advanced Practice Midwife; Visit Provider Advanced Practice Midwife
DX: O03.4 Incomplete spontaneous abortion without complication (principal)
CPT/HCPCS: 99213; G0463

== ENCOUNTER → 2024-12-15 | Outpatient (CLI) | payer MEDICAID, SELFPAY ==
--- NOTE | 2024-12-15 12:33 | XR_ITS ---
Examination: Complete OB ultrasound, less than 14 weeks, transabdominal Date and time of exam: December 15, 2024, 12:44 p.m. INDICATIONS: Clinical diagnosis incomplete miscarriage, ultrasound December 09, 2024 empty intrauterine gestational sac corresponding to 6 weeks 5 days gestational age Technique: Obstetrical ultrasound images less than 14 weeks performed via transabdominal imaging Findings: Uterus 9.7 cm no intrauterine gestation no uterine mass Endometrial stripe 1.0 cm Right ovary 4.1 cm arterial flow 19 mm x 21 mm 20 x 17 mm cyst Left ovary 3.2 cm arterial flow, 20 x 17 mm cyst IMPRESSION: Findings most consistent with completed spontaneous in the appropriate clinical setting
== END | disposition home or self-care (01) ==
PROVIDERS: PCP Advanced Practice Midwife; Referring Provider Advanced Practice Midwife; Visit Provider Advanced Practice Midwife
DX: O03.4 Incomplete spontaneous abortion without complication (principal)
CPT/HCPCS: 76801

== ENCOUNTER 2025-01-10 08:06 | Outpatient (AMB) | payer MEDICAID, SELFPAY ==
--- NOTE | 2025-01-10 08:20 | AMB.GYNCLNOT ---
Allergies/Home Meds Allergies & Medications Allergies No Known Drug Allergies Allergy (Verified 01/10/25 08:21) Medication Reconciliation ibuprofen 800 mg tablet 800 mg PO TID PRN Pain 04/28/17 [History Confirmed 01/10/25] ondansetron 4 mg disintegrating tablet 4 mg PO Q8H PRN nausea and vomiting #10 tabs 06/30/21 [Rx Confirmed 01/10/25] promethazine-DM 6.25 mg-15 mg/5 mL oral syrup 5 ml PO Q6H #240 mL 06/30/21 [Rx Confirmed 01/10/25] ibuprofen 600 mg tablet 600 mg PO Q8H PRN pain #20 tabs 12/26/23 [Rx Confirmed 01/10/25] Intake Visit Data Collection New Patient or Established: Established Patient (seen at [facility] within 3 years) Reason for Visit:: LAB RESULTS AND ULTRASOUND RESULTS Consent obtained for Telemed Visit: Yes Seen by Clinical Staff ONLY (RN/MA): No Commission Broker Required: No Do You Feel Safe at Home: Yes Authorities Contacted: N/A PCP or OBGYN visit in last 3 months: Yes Hx Now: No Are you currently on any form of Control: No Pain Present Currently: No Pain Scale Used: Bond-Waddell/Numerical Pain scale:: 0 Smoking Status Smoking Status: Never smoker Immunizations Flu Vaccine in the Last 12 Months: Yes Flu Vaccine Exclusion Criteria: Already Received For Telemed visit only Telemed Video/Phone Visit: Yes Verbal consent obtained for Telemed visit?: Yes Verbal Consent witness name: APRIL FIELDS 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 Menstrual regularity: regular Flow: normal Monthly: Yes How many days does period last: 5 Age at menarche: 11 Currently sexually active: No If not currently sexually active, have you ever been 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 1. Little interest or pleasure in doing things: not at all 2. Feeling down, depressed, or hopeless: not at all Total score: 0 PHQ-9 3. Trouble falling or staying asleep, or sleeping too much: Not at all 4. Feeling tired or having little energy: Not at all 5. Poor appetite or overeating: Not at all 6. Feeling bad about yourself - or that you are a failure or have let yourself or your family down: Not at all 7. Trouble concentrating on things, such as reading the newspaper or watching television: Not at all 8. Moving or speaking so slowly that other people could have noticed? - Or the opposite - being so fidgety or restless that you have been moving around a lot more than usual: not at all 9. Thoughts that you would be better off or of hurting yourself in some way: Not at all Total score: 0 Source: Developed by Drs. Shahid Vang, Camila Sharma, Eliud Arguelles and colleagues, with an educational shira from [employer]. Depression screen completed yes Social History Living Situation History Lives With: Family Housing: House Tobacco History Smoking Status: Never smoker Second Hand Smoke Exposure: No Alcohol History Alcohol Intake: Current Alcohol Intake Frequency: A Few Times a Week Substance Use History Substance Use: 2-3 Joints daily Domestic Abuse History Do You Feel Safe at Home: Yes History of Present Illness HPI Narrative 29-year-old 1 para 0 for follow-up on hCGs. Patient was seen in the ER November 27 for vaginal bleeding. Patient had an intrauterine at that time at 6 weeks with heart tones and hCGs were 17,000. Patient continued to have bleeding since then she had gone to the ER December 09 and hCGs were increasing. ultrasound was done though at that time and showed an intrauterine of 6 weeks 5 days with no pole and no heart tones. December 15 patient went back to the ER again because of continued bleeding and the ultrasound showed that she had a complete SAB and had passed all the products of conception.. I repeated patient's hCG on December 19 hCG was 413. Follow-up hCG on the seventh was 95. And patient reported that she had stopped bleeding and is feeling much better today. Patient has been having unprotected sex and she feels that if she gets she is fine with that. She did not want any control Results Objective Laboratory: 12/19: hcg 413. 12/23: hc Imagin/30: complete SAB Office Procedures [facility] LOC & Office Proc's Nursing/Assessment Patient Status: Established Patient OB Clinic Nursing Assessment: Medication Reconciliation and Update PMH in EMR OB Clinic Coordination of Care: Complex Care and Chronic Disease 1-5, Consent,records obtained, informed consent, Education Simp Pt/Fam, Results/Orders obtained and Staff clarify orders Established Patient Charge Established Patient Point Assignment: 75 Telehealth If patient is seen using Teleconference methods, complete New/Est section, but DO NOT honey points only honey the correct Telemed visit type Telemed Phone/Video with patient at home & Dr,PA,SOLAR SALES ADVISOR: Yes Assessment & Plan Diagnosis / Problem List (1) Complete miscarriage: Status: Acute Plan I offered contraception to patient and she declined. I told her to start taking her vitamins in case of . And to watch her diet and regular exercise. And then we also had discussed her hCG results. Return as needed for contraception or Additional Plan Follow Up: 6 Months ( control)
== END 2025-01-10 09:42 | disposition home or self-care (01) ==
LOC: HODSOBC 08:06
PROVIDERS: Supervising Provider Advanced Practice Midwife; Visit Provider Advanced Practice Midwife
DX: O03.9 Complete or unspecified spontaneous abortion without complication (principal)
CPT/HCPCS: 99212; G0463